=== PATIENT | male | born 1995 | race Caucasian/White ===

== ENCOUNTER 2024-09-12 06:27 | Day surgery (SDC) | payer BC, SELFPAY | END 2024-09-12 12:18 | disposition home or self-care (01) | LOC: GI 06:27 | PROVIDERS: ATTENDING PHYSICIAN Internal Medicine | DX: K50.80 Crohn's disease of both small and large intestine without complications (principal); Z98.0 Intestinal bypass and anastomosis status | CPT/HCPCS: 45380; 88305 ==